=== PATIENT | male | born 1955 | race Two or more races ===

== ENCOUNTER 2020-12-15 15:11 | Outpatient (CLI) | payer OTHER | END 2020-12-15 15:25 | disposition home or self-care (01) | LOC: RAD 15:11 | PROVIDERS: ATTEND Physical Medicine & Rehabilitation | DX: M51.36 Other intervertebral disc degeneration, lumbar region (principal); M54.5 Low back pain; M54.2 Cervicalgia ==

== ENCOUNTER 2023-06-11 11:42 | Outpatient (CLI) | payer OTHER | END 2023-06-11 11:51 | disposition home or self-care (01) | LOC: RAD 11:42 | DX: M41.9 Scoliosis, unspecified (principal) ==